=== PATIENT | female | born 1945 | race Caucasian/White ===

== ENCOUNTER → 2017-05-18 | Outpatient (REF) | payer MEDICARE, OTHER | LOC: M SFHCWAGY 11:30 | PROVIDERS: ATTEND Nurse Practitioner Family | DX: Z12.4 Encounter for screening for malignant neoplasm of cervix (principal) | CPT/HCPCS: G0101; G0123 ==

== ENCOUNTER 2018-01-22 09:35 | Emergency (ER) | payer MEDICARE, OTHER ==
[2018-01-22 10:32] LABS: BASO % 0.2 % (0.0-1.0); EOS % 0.1 % (0.0-3.0); HEMATOCRIT 45.3 % (36.0-47.0); HEMOGLOBIN 15.2 g/dl (12.0-15.5); IMMATURE GRANULOCYTE % 0.8 % (0-3.0); LYMPH # 0.7 10^3/uL (1.5-4.5); LYMPH % 3.8 % (24.0-44.0); MEAN CORPUSCULAR HEMOGLOBIN 30.5 pg (27.0-33.0); MEAN CORPUSCULAR HGB CONC 33.6 g/dl (32.0-36.5); MONO # 0.9 10^3/uL (0.0-0.8); MONO % 4.8 % (0.0-5.0); NEUTROPHILS % 90.3 % (36.0-66.0); PLATELET COUNT, AUTOMATED 100 10^3/uL (150-450); RED BLOOD COUNT 4.98 10^6/uL (4.00-5.40); RED CELL DISTRIBUTION WIDTH 12.3 % (11.5-14.5); WHITE BLOOD COUNT 18.8 10^3/uL (4.0-10.0)
[2018-01-22] MEDS: MORPHINE 2 MG/ML 1ML SYRINGE (J2270) IV (10:34)
[2018-01-22 10:52] LABS: ANION GAP 6 MEQ/L (8-16); BLOOD UREA NITROGEN 11 MG/DL (7-18); C REACTIVE PROTEIN QUANTITATIV 0.38 MG/DL (0.00-0.30); CALCIUM LEVEL 9.3 MG/DL (8.8-10.2); CARBON DIOXIDE LEVEL 29 MEQ/L (21-32); CHLORIDE LEVEL 108 MEQ/L (98-107); CREATININE FOR GFR 0.88 MG/DL (0.55-1.30); GLOMERULAR FILTRATION RATE > 60.0 (>39); GLUCOSE, FASTING 103 MG/DL (70-100); POTASSIUM SERUM 4.2 MEQ/L (3.5-5.1); SODIUM LEVEL 143 MEQ/L (136-145)
[2018-01-22 10:55] LABS: ERYTHROCYTE SEDIMENTATION RATE 17 mm/hr (0-30)
== END 2018-01-22 11:59 | disposition home or self-care (01) ==
LOC: M ED 09:35
DX: M43.6 Torticollis (principal); E66.9 Obesity, unspecified; Z79.899 Other long term (current) drug therapy
CPT/HCPCS: J2270

== ENCOUNTER → 2018-06-23 | Outpatient (REF) | payer MEDICARE, OTHER ==
[~2018-06-23] MED LIST: BUPR300T34 PO; BUSP5TA PO; CALCIUM MAG VIT D; CLAR10CA3 PO; CO-QCAP PO; DEXI60CA2 PO; FOLI800C PO; NAPR-50 PO; PROB250C PO; VALI5TAB PO; [UNRECOGNIZED DRUG - OTHER]; potassium 99
== END ==
LOC: M SFHCWAGY 11:50
PROVIDERS: ATTEND Nurse Practitioner Family
DX: Z12.4 Encounter for screening for malignant neoplasm of cervix (principal); N95.2 Postmenopausal atrophic vaginitis; Z12.12 Encounter for screening for malignant neoplasm of rectum
CPT/HCPCS: 82270; G0101; G0123

== ENCOUNTER 2019-05-18 06:43 | Emergency (ER) | payer MEDICARE, OTHER ==
[~2019-05-18] VITALS: Ht 170.2 cm; Wt 101.4 kg
[~2019-05-18 06:43] MED LIST changes: -NAPR-50 PO; +NAPR-837 PO
[2019-05-18] MEDS ORDERED: LIDOCAINE W/EPINEPHRINE 1% 20ML VIAL SC ONE (07:30)
[2019-05-18 08:21] LABS: BASO % 0.1 % (0.0-1.0); EOS % 0.2 % (0.0-3.0); HEMATOCRIT 39.5 % (36.0-47.0); HEMOGLOBIN 12.8 g/dl (12.0-15.5); LYMPH # 1.1 10^3/uL (1.5-5.0); LYMPH % 6.3 % (24.0-44.0); MEAN CORPUSCULAR HEMOGLOBIN 29.4 pg (27.0-33.0); MEAN CORPUSCULAR HGB CONC 32.4 g/dl (32.0-36.5); MEAN CORPUSCULAR VOLUME 90.8 fl (80.0-96.0); MONO # 0.9 10^3/uL (0.0-0.8); MONO % 4.9 % (0.0-5.0); NEUTROPHILS # 15.4 10^3/uL (1.5-8.5); NEUTROPHILS % 87.9 % (36.0-66.0); PLATELET COUNT, AUTOMATED 111 10^3/uL (150-450); RED BLOOD COUNT 4.35 10^6/uL (4.00-5.40); WHITE BLOOD COUNT 17.6 10^3/uL (4.0-10.0)
[2019-05-18 11:31] VITALS: BP 138/63
--- NOTE | 2019-05-18 11:40 | REP ---
ULTRASOUND LEFT BREAST: Real-time sonographic evaluation of the left breast performed at the site of a biopsy at 3 to 4 -o'clock position near the nipple. At that location, there is ill-defined hypoechoic fluid 4 x 6 x 4 mm likely representing a small hematoma. There appears to be a tract to the skin surface. No other abnormalities are seen in this region. Electronically Signed by Casper Burgos MD 05/18/2019 12:51 P
--- NOTE | 2019-05-19 14:00 | ED PDOC ---
Post-Departure Follow-Up sharon tinoco faxed formal report of breast us for fu Shayna Monge MD May 19, 2019 14:00
== END 2019-05-18 11:32 | disposition home or self-care (01) ==
LOC: M ED 06:43
DX: L76.82 Other postprocedural complications of skin and subcutaneous tissue (principal); D69.6 Thrombocytopenia, unspecified; Z79.899 Other long term (current) drug therapy; Z88.5 Allergy status to narcotic agent

== ENCOUNTER → 2020-04-09 | Outpatient (CLI) | payer MEDICARE, OTHER ==
[~2020-04-09] MED LIST changes: -BUPR300T34 PO; +BUPR300T92 PO
--- NOTE | 2020-04-09 15:46 | REP ---
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 Status post cardiac catheterization for ablation study April 01, 2020. Rule out pseudoaneurysm COMPARISON: None. TECHNIQUE: Duplex arterial Doppler sonography left groin region. FINDINGS: Scanning of the left groin over the recent catheterization puncture site shows no evidence of pseudoaneurysm or arteriovenous fistula. Common femoral vein and common femoral artery appear patent and unremarkable. Normal arterial waveforms and velocities. IMPRESSION: Unremarkable left groin Doppler ultrasound. No evidence of pseudoaneurysm, occlusion, or arteriovenous fistula. No abnormal fluid collection visualized. <Electronically signed by Dain Tucker > 04/09/20 0152
== END ==
LOC: M RAD 14:35
PROVIDERS: ATTEND Internal Medicine Cardiovascular Disease
DX: I72.4 Aneurysm of artery of lower extremity (principal)

== ENCOUNTER → 2020-06-27 | Outpatient (REF) | payer MEDICARE, OTHER | LOC: M SFHCWAGY 18:38 | PROVIDERS: ATTEND Nurse Practitioner Family | DX: Z12.4 Encounter for screening for malignant neoplasm of cervix (principal); N95.2 Postmenopausal atrophic vaginitis | CPT/HCPCS: G0101; G0123 ==

== ENCOUNTER → 2022-08-05 | Outpatient (REF) | payer MEDICARE, OTHER | LOC: M SFHCWAGY 16:48 | PROVIDERS: ATTEND Nurse Practitioner Family | DX: N39.0 Urinary tract infection, site not specified (principal) ==

== ENCOUNTER → 2022-08-07 | Outpatient (CLI) | payer MEDICARE, OTHER | LOC: M PLAIMG 11:52 | PROVIDERS: ATTEND Surgery | DX: K63.89 Other specified diseases of intestine (principal); R10.84 Generalized abdominal pain ==